=== PATIENT | female | born 1980 | race Caucasian/White ===

== ENCOUNTER 2020-08-21 17:38 | Outpatient (CLI) | payer BC, SELFPAY ==
--- NOTE | ~2020-08-21 | MM_ITS ---
EXAMINATION: MM screening [facility] BI w tyrel HISTORY: Screening mammogram TECHNIQUE: Craniocaudal and mediolateral oblique 3-D tomosynthesis images were obtained and synthetic 2-D images were generated. CAD analysis was submitted and interpreted. COMPARISON: 08/29/2019 bilateral Limited breast ultrasound examination 03/17/2019 bilateral diagnostic digital mammogram and Limited bilateral breast ultrasound examination 02/22/2019 bilateral digital screening mammogram BREAST PARENCHYMAL COMPOSITION: The breasts are heterogeneously dense, which may obscure small masses . FINDINGS: A circumscribed approximately 1 cm low-density opacity is noted in the inner mid left breas t, likely corresponding to previously reported stable 11 mm hypoechoic lesion at left breast 10:00 po sition 3 to 4 cm from nipple on 08/29/2019. The low-density and circumscribed margins and stable or sl ightly diminished size since 08/29/2019 are most consistent with benign process. There is suggestion of a possible adjacent 7 mm mass. Diagnostic left mammogram and left breast ultra sound examination are recommended. Architectural distortion is suggested at mid depth in the upper inner left breast (MLO Tomosynthesis image 39/58). Diagnostic left mammogram and left breast ultrasound examination are recommended. IMPRESSION: 1. Architectural distortion and possible 7 mm mass of left breast 2. Diagnostic left mammogram and left breast ultrasound examination are recommended. BI-RADS Category 0: Incomplete: Needs additional imaging evaluation. Reviewed, dictated and finalized at location A. CTOR COMMUNICATIONS IMPRESSION: 1. Architectural distortion and possible 7 mm mass of left breast 2. Diagnostic left mammogram and left breast ultrasound examination are recomme nded. BI-RADS Category 0: Incomplete: Needs additional imaging evaluation.
== END 2020-08-21 17:39 | disposition home or self-care (01) ==
LOC: ANHIMG 17:40
PROVIDERS: Visit Provider Nurse Practitioner
DX: Z12.31 Encounter for screening mammogram for malignant neoplasm of breast (principal); R92.8 Other abnormal and inconclusive findings on diagnostic imaging of breast
CPT/HCPCS: 77063; 77067

== ENCOUNTER → 2020-09-17 14:35 | Outpatient (CLI) | payer BC, SELFPAY ==
--- NOTE | ~2020-09-17 | MMUS_ITS ---
EXAMINATION: MM diagnostic mammo unilat LT, US breast LT complete HISTORY: Architectural distortion suggested at mid depth in the upper inner left breast on 08/17/2020 screening mammogram. Suggestion of possible new 7 mm mass. TECHNIQUE: Additional 3-D tomosynthesis images of the left breast were performed and synthetic 2-D im ages were generated. CAD analysis was submitted and interpreted. High resolution complete left breast ultrasound was performed. COMPARISON: 08/17/2020 bilateral digital screening mammogram FINDINGS: MAMMOGRAPHIC FINDINGS: There is heterogeneously dense stroma which may obscure small masses. ULTRASOUND: 3:00 5 cm from nipple: Parallel circumscribed hypoechoic 2.4 x 3.7 x 4.4 mm lesion without suspicious shadowing 4:00 4 cm from nipple: Parallel circumscribed 2.3 x 4.6 x 6 mm hypoechoic lesion without suspicious s hadowing 9:00 5 cm from nipple: Parallel circumscribed hypoechoic solid lesion measuring 5.4 x 9.4 x 8.4 mm. N o internal vascularity is noted on color flow imaging. There is some through-transmission. 9:00 3 cm from nipple: Parallel circumscribed hypoechoic approximately 3 x 5.8 mm probable septated c yst. 10:00 34 cm from nipple: Parallel circumscribed hypoechoic 4.9 x 9.2 x 1.0 mm lesion without internal vascularity, with through transmission and posterior enhancement. 9:00 subareolar area: 2.2 x 3.5 x 3.6 mm cyst; a couple of additional approximately 2 mm cysts are no raghav in the 9:00 subareolar area. IMPRESSION: 1. Benign sonographic lesions including cysts and benign-appearing solid lesions suggestive of fibroa denoma rather benign process. 2. Routine mammographic screening is recommended. BI-RADS Category 2: Benign finding(s). Reviewed, dictated and finalized at location A. MITE WELDER IMPRESSION: 1. Benign sonographic lesions including cysts and benign-appearing solid lesion s suggestive of fibroadenoma rather benign process. 2. Routine mammographic screening is recommended. BI-RADS Category 2: Benign finding(s).
== END ==
PROVIDERS: PCP Family Medicine; Visit Provider Obstetrics & Gynecology Gynecology
DX: R92.8 Other abnormal and inconclusive findings on diagnostic imaging of breast (principal)
CPT/HCPCS: 76641; 77065

== ENCOUNTER → 2022-11-25 13:51 | Outpatient (CLI) | payer BC, SELFPAY ==
--- NOTE | ~2022-11-25 | US_ITS ---
EXAMINATION: US transvaginal DATE: 11/25/2022 14:15 INDICATION: Abnormal uterine bleeding Comparison:Ultrasound dated 01/19/2019 TECHNIQUE: Multiple transabdominal and endovaginal sonographic images of the pelvis performed. FINDINGS: The uterus measures 7.7 x 5.1 x 5.4 cm. The endometrial complex measures 7 mm. The right ovary measures 3.1 x 1.9 x 1.9 cm and the left ovary measures 3 x 2.5 x 2.8 cm. There is a left ovarian cyst measuring 2.3 cm. There are small follicles in each ovary. Normal doppler signal in both ovaries. There is trace free fluid in the pelvis. There are no abnormal masses seen on either side. IMPRESSION: 1. Left ovarian cyst measuring 2.3 cm. Reviewed, dictated and finalized at location L. HOMETRICIAN
== END ==
PROVIDERS: PCP Family Medicine; Visit Provider Obstetrics & Gynecology Gynecology
DX: N93.8 Other specified abnormal uterine and vaginal bleeding (principal); N83.202 Unspecified ovarian cyst, left side
CPT/HCPCS: 76830

== ENCOUNTER → 2023-01-30 14:00 | Outpatient (CLI) | payer BC, SELFPAY ==
--- NOTE | ~2023-01-30 | MM_ITS ---
EXAMINATION: MM screening [facility] BI w tyrel HISTORY: Screening mammogram TECHNIQUE: Craniocaudal and mediolateral oblique 3-D tomosynthesis images were obtained and synthetic 2-D images were generated. CAD analysis was submitted and interpreted. COMPARISON: 09/17/2020, 08/21/2020, 02/28/2019, 02/22/2019 BREAST PARENCHYMAL COMPOSITION: The breasts are heterogeneously dense, which may obscure small masses . FINDINGS: No suspicious mass, calcification, or architectural distortion are identified in either martina ast to suggest malignancy. There has been no suspicious interval change. IMPRESSION: 1. No mammographic evidence of malignancy. 2. Recommend routine screening mammography in one year. BI-RADS Category 1: Negative Reviewed, dictated and finalized at location A.
== END ==
PROVIDERS: PCP Family Medicine; Visit Provider Nurse Practitioner
DX: Z12.31 Encounter for screening mammogram for malignant neoplasm of breast (principal)
CPT/HCPCS: 77063; 77067

== ENCOUNTER 2024-06-02 13:47 | Outpatient (CLI) | payer BC, SELFPAY ==
--- NOTE | ~2024-06-02 | MM_ITS ---
EXAMINATION: MM screening [facility] BI w tyrel HISTORY: Screening TECHNIQUE: Craniocaudal and mediolateral oblique 3-D tomosynthesis images were obtained and synthetic 2-D images were generated. CAD analysis was submitted and interpreted. COMPARISON: Comparison to multiple prior studies sequentially, with oldest reviewed study dated 02/22. BREAST PARENCHYMAL COMPOSITION: Dense: The breasts are heterogeneously dense, which may obscure small masses FINDINGS: The right breast is stable without evidence for malignancy. There are developing left breas t asymmetries obscured by dense fibroglandular content. IMPRESSION: 1. Developing left breast asymmetries. 2. Additional mammographic views and possible breast ultrasound are recommended. BI-RADS Category 0: Incomplete: Needs additional imaging evaluation. Reviewed, dictated and finalized at location B. IMPRESSION: 1. Developing left breast asymmetries. 2. Additional mammographic views and possible breast ultrasound are recommended . BI-RADS Category 0: Incomplete: Needs additional imaging evaluation.
== END 2024-06-02 13:48 | disposition home or self-care (01) ==
LOC: MICIMG 13:48
PROVIDERS: PCP Nurse Practitioner; Visit Provider Nurse Practitioner
DX: Z12.31 Encounter for screening mammogram for malignant neoplasm of breast (principal); N64.89 Other specified disorders of breast
CPT/HCPCS: 77063; 77067

== ENCOUNTER 2024-06-28 08:19 | Outpatient (CLI) | payer BC, SELFPAY ==
--- NOTE | ~2024-06-28 | MMUS_ITS ---
EXAMINATION: MM diagnostic [facility] LT w tyrel, US breast LT complete HISTORY: Follow-up left breast asymmetries TECHNIQUE: Additional 3-D tomosynthesis images of the left breast were performed and synthetic 2-D im ages were generated. CAD analysis was submitted and interpreted. High resolution complete left breast ultrasound was performed. COMPARISON: Comparison to multiple prior studies sequentially, with oldest reviewed study dated 02/22. BREAST PARENCHYMAL COMPOSITION: Dense: The breasts are heterogeneously dense, which may obscure small masses FINDINGS: MAMMOGRAPHIC FINDINGS: There is a mass in the lateral aspect of the left breast which is obscured by dense fibroglandular ti ssue. There are no suspicious calcifications or architectural distortion. ULTRASOUND: Complete US of all 4 quadrants of the left breast/s and retroareolar region was reviewed. At 1:00, 5 cm from the nipple there is a 1.3 cm cyst. At 3:00, 5 cm from the nipple there is a 7 mm cyst. At 8:0 0, 1 cm from the nipple there is a 5 mm cyst. At 9:00, 5 cm from the nipple there is an oval hypoecho ic circumscribed parallel oriented 7 x 4 x 7 mm mass without posterior features or internal vasculari ty, decreased in size compared with prior examination, likely benign. At 10:00, 4 cm from the nipple there is an oval hypoechoic mass with circumscribed margins measuring 9 x 9 x 5 mm with internal calc ifications, no internal vascularity and no posterior features, stable compared with prior ultrasound dated 09/17/2020, benign. IMPRESSION: 1. No evidence for malignancy in the left breast. Benign findings. 2. Routine yearly screening mammogram and regular clinical breast examination are recommended. BI-RADS Category 2: Benign finding(s). Reviewed, dictated and finalized at location B. IMPRESSION: 1. No evidence for malignancy in the left breast. Benign findings. 2. Routine yearly screening mammogram and regular clinical breast examination a re recommended. BI-RADS Category 2: Benign finding(s).
== END 2024-06-28 08:20 | disposition home or self-care (01) ==
PROVIDERS: PCP Obstetrics & Gynecology Gynecology; Visit Provider Obstetrics & Gynecology Gynecology
DX: R92.8 Other abnormal and inconclusive findings on diagnostic imaging of breast (principal)
CPT/HCPCS: 76641; 77061; 77065; G0279

== ENCOUNTER 2025-06-10 13:39 | Outpatient (CLI) | payer BC, SELFPAY ==
--- OUTSIDE RECORDS SUMMARY | 2025-06-10 13:44 | XMS_ITS | Encounter Summary ---
Author Organization [facility] Address [facility] [place] [address] Care Team Providers Care Cream Dipper Name Role Phone Sherlyn Brown DO Primary Care Provider Encounter Details Date Type Department Care Team (Late st Contact Info) Description 05/05/2024 [employer] Message Enc [facility] Medical Group Family Medicine - [place] [address], [address] [place] [id number] Sherlyn Brown DO [address] [place], [place] [phone] Insurance issue with labs requested Social History Tobacco Use Types Packs/Day Years Used Date Smoking Tobacco: Former Cigarettes 1 15 0 04/28/1996 - 04/28/2011 Passive Smoke Exposure: Never Smokeless Tobacco: Never Alcohol Use Standard Drinks/Week Comments Yes 3.3 (1 standard drink = 0.6 oz p ure alcohol) socially PHQ-2 Answer Date Recorded Patient Health Questionnaire-2 Score 0 12/15/2023 Comments No Sex and Gender Information Value Date Recorded Sex Assigned at Female 04/12/2025 2:02 PM CDT Legal Sex Female 6:23 PM CDT Gender Identity Not on file Sexual Orientation Not on file documented as of this encounter Plan of Treatment Not on file documented as of this encounter Visit Diagnoses Not on filedocumented in this encounter Additional Health Concerns Assessment Noted Time PHQ-9 Depression Total Score: 0 12/15/19 24 10:14 AM CDT documented as of this encounter Care Teams Cream Dipper Relationship Specialty Start Date End Date Sherlyn Brown DO [address] [place] [address] PCP - General FAMILY PRACTICE 09/12/22 documented as of this encounter
--- OUTSIDE RECORDS SUMMARY | 2025-06-10 13:44 | XMS_ITS | Encounter Summary ---
Author Organization [facility] Address [facility] [place] [address] Care Team Providers Care Maintenance Mechanic Millwright Name Role Phone Sherlyn Brown DO Primary Care Provider [phone] Encounter Details Date Type Department Care Team (Late st Contact Info) Description 09/29/2023 [employer] Message Enc [facility] Medical Group Family Medicine - [place] 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
--- OUTSIDE RECORDS SUMMARY | 2025-06-10 13:44 | XMS_ITS | Encounter Summary ---
Author Organization [facility] Address [address] [place] [address] Care Team Providers Care Scientific Editor Name Role Phone Sherlyn Brown Primary Care Provider [phone] Encounter Details Date Type Department Care Team (Late st Contact Info) Description 03/20/2023 [employer] Message Enc [facility] Medical Group Family Medicine - [place] [id number], [address] [place] [phone] [employer]herbie, [facility] Provider methylphenidate Social History Tobacco Use Types Packs/Day Years [...] on file Sexual Orientation Not on file COVID-19 Exposure Response Date Recorded In the last 10 days, have yo u been in contact with someone who was confirmed or suspected to have Coronavirus/COVID-19? 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
--- OUTSIDE RECORDS SUMMARY | 2025-06-10 13:44 | XMS_ITS | Encounter Summary ---
Author Organization [facility] Address [facility] [place] [address] Care Team Providers Care Loss Prevention Specialist Name Role Phone Sherlyn Brown DO Primary Care Provider [phone] Encounter Details Date Type Department Care Team (Late st Contact Info) Description 12/17/2023 [employer] Message Enc [facility] Medical Group Family Medicine - [place] [address] [facility], [address] [place] [phone] Sherlyn Brown DO [address] [place], [place] [phone] Need labs sent to [facility] Social History Tobacco Use Types Packs/Day Years [...] documented as of this encounter Care Teams Loss Prevention Specialist Relationship Specialty Start Date End Date Sherlyn Brown DO [address] [place] [address] PCP - General FAMILY PRACTICE 09/12/22 documented as of this encounter
--- OUTSIDE RECORDS SUMMARY | 2025-06-10 13:44 | XMS_ITS | Clinical Summary ---
Author Organization [facility] Address [address] [place] [address] Care Team Providers Care Steam And Power Superintendent Name Role Phone Marcus Porter MD Primary Care Provider [phone] Jarrett Alcantar DO Unavailable [phone] Halina Ren MD Unavailable [phone] Allergies No known active allergies Medications No known medications Active Problems Problem Noted Date Diagnosed Date Protein C deficiency 04/03/2019 MTHFR gene mutation 04/03/2019 Anxiety 06/21/2018 Vitamin D deficiency, unspecified 02/17/2017 Hypercoagulable state 07/09/2016 Encounters Date Type Department Care Team Description 05/04/2025 Telephone [facility] Oncology [address] [place] [phone] Michelle Faustin 05/03/2025 4:30 PM CDT Telemedicine [facility] Medicine [facility] Oncology [address] [place] [address] [address] [place] [address] Jarrett Alcantar DO Protein C deficiency (Primary Dx) 04/27/2025 8:00 AM CDT Lab [facility] at [address] [address] Protein C deficiency (Primary Dx) from Last 3 Months Immunizations Immunization Administration Dates Next Due Influenza, Quadrivalent, Spl it, Preservative Free, Intramuscular 07/25/2019 Influenza, Unspecified 06/28/2020,07/03/2015,05/2015 Pfizer SARS-CoV-2 Monovalent Vaccination (12+ Yrs) PURPLE 12/22/2020,12/01/2020 Surgical History Surgery Date Site/Laterality Comments SECTION WISDOM TOOTH EXTRACTION DILATION AND CURETTAGE OF UTERUS x2 HYSTEROSCOPY ABLATION uterine LASIK Medical History Medical History Date Comments Anxiety Protein C deficiency MTHFR (methylene THF reductase) deficiency and h omocystinuria History of multiple spontaneous abortions Mitral valve prolapse Family History Medical History Relation Name Comments Heart disease Mother Kidney failure Mother Stroke Mother Relation Name Status Comments Father Alive Mother Social History Tobacco Use Types Packs/Day Years Used Date Smoking Tobacco: Former Cigarettes 2 15 0 04/09/1996 - 04/09/2011 Smokeless Tobacco: Never Alcohol Use Standard Drinks/Week Comments Yes 0 (1 standard drink = 0.6 oz pur e alcohol) AUDIT-C Answer Date Recorded Frequency of Alcohol Consumption 2-3 times a wee k 04/03/2019 Average Number of Drinks Not on file 019 Frequency of Binge Drinking Not on file 03/2019 PHQ-2 Answer Date Recorded PHQ-2 Total Score (If total score is 3 or more points, staff should administer the PHQ-9) 0 11/29/2020 Comments Unknown Sex and Gender Information Value Date Recorded Sex Assigned at Not on file Legal Sex Female 8:18 AM CDT Gender Identity Not on file Sexual Orientation Not on file 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 Not on file Not on file Obstetrics History Last Filed Vital Signs Vital Sign Reading Time Taken Comments Blood Pressure 115/80 04/18/2022 8:11 AM CDT Pulse 67 04/18/2022 8:11 AM CDT Temperature 36.6 C (97.9 F) 04/18/2022 8:11 AM CDT Respiratory Rate 18 04/18/2022 8:11 AM CDT Oxygen Saturation 98% 04/18/2022 8:11 AM CDT Inhaled Oxygen Concentration - - Weight 77.7 kg (171 lb 3.2 oz) 04/18/2022 8:11 A M CDT Height 156.2 cm (5' 1.5) 04/18/2022 8:11 AM CDT Body Mass Index 31.82 04/18/2022 8:11 AM CDT Plan of Treatment Health Maintenance Due Date Last Done Comments Breast Cancer Screening-Mammogram 1978 Cervical Cancer Screening 1978 Colon Cancer Screening-Colonoscopy 1978 Hepatitis C Screening 1978 DTaP/Tdap/Td Vaccine (1 - Tdap) 1989 Hepatitis B Screening 1996 Depression Screening 11/29/2021 11/29/2020, 07/25/2019, 01/24/2019 Regular Well Visit/Exam 18-64 11/29/2021 11/29/2020 Covid-19 Vaccine ( season) 2025 12/22/2020, 12/01/2020 Influenza Vaccine (#1) 2025 , 06/28/2020, 07/25/2019, Additional history exists HPV Vaccines Aged Out No longer eligi ble based on patient's age to complete this topic Pneumococcal vaccine <65 Aged Out No longer eligible based on patient's age to complete this topic Procedures Procedure Name Priority Date/Time Associated Diagnosis Comments PROTEIN C ACTIVITY Routine 04/27/2025 8: 12 AM CDT Protein C deficiency from Last 3 Months Results * (ABNORMAL) Protein C activity (04/27/2025 8:12 AM CDT) Protein C 57(L) 60 - 150 % Comment:Testing performed by : [facility], [address] [facility], [place]., [address] Blood 04/27/2025 8:12 AM CDT 04/27/2025 5:36 PM CDT us Jarrett Alcantar DO LAB BLOOD ORDERABLES Final R esult [facility] [address] [facility] Department [place] [address] from Last 3 Months Insurance [facility] Care Teams Steam And Power Superintendent Relationship Specialty Start Date End Date Marcus Porter MD PCP - General Family Medicine 01/19/19 Jarrett Alcantar DO [address] [place] [address] Medical Oncologist/Teacher Education Instructor Hematology and Oncology 03/16/19 Halina Ren MD [address] [facility] [address] [place], [place] [id number] Referring Physician Gynecology 03/28/19
--- OUTSIDE RECORDS SUMMARY | 2025-06-10 13:44 | XMS_ITS | Clinical Summary ---
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 Gender Identity Not on file Sexual Orientation Not on file Plan of Treatment Health Maintenance Due Date Last Done Comments DTAP/TDAP/TD VACCINES (1 - Tdap) 1997 HEPATITIS B VACCINES (1 of 3 - 19+ 3-dose series) 1997 HPV/Cotest (21-29) 12/01/1999 CERVICAL CANCER SCREENING 2008 HPV/Cotest (30-65) 2008 PAP SMEAR 2008 BREAST CANCER SCREENING 2018 COLORECTAL SCREENING 12/01/2023 Colorectal Cancer Screening 12/01/2023 FIT-DNA Q 3 years 12/01/2023 FIT/FOBT Q 1 year 12/01/2023 Flex Sig/CT Colonography Q 5 years 12/01/2023 INFLUENZA VACCINE (#1) 2025 HPV VACCINES Aged Out No longer eligi ble based on patient's age to complete this topic Insurance BCBS BLUE ACCESS/[facility]
--- OUTSIDE RECORDS SUMMARY | 2025-06-10 13:44 | XMS_ITS | Encounter Summary ---
Author Organization [facility] Address [facility] [place] [address] Care Team Providers Care Bird Cage Assembler Name Role Phone Sherlyn Brown DO Primary Care Provider [phone] Encounter Details Date Type Department Care Team (Late st Contact Info) Description 06/23/2024 Identia Message Enc [facility] Family Medicine - [place] [address], [address] [place] [phone] Sherlyn Brown DO [address] [place], [place] [phone] pap smear Social History Tobacco Use Types Packs/Day Years [...] documented as of this encounter Care Teams Bird Cage Assembler Relationship Specialty Start Date End Date Sherlyn Brown DO [address] [place] [address] PCP - General FAMILY PRACTICE 09/12/22 documented as of this encounter
--- OUTSIDE RECORDS SUMMARY | 2025-06-10 13:44 | XMS_ITS | Encounter Summary ---
Author Organization [facility] Care Team Providers Care Audit Spec Name Role Phone Marcus Porter MD Primary Care Provider [phone] Jarrett Alcantar DO Unavailable [phone] Halina Ren MD Unavailable [phone] Encounter Details Date Type Department Care Team (Latest Contact Info) Description 10/18/2016 Orders Only [facility] CLINCONV Provider, MD Sam [address] [place] [address] Social History Tobacco Use Types Packs/Day Years Used Date Smoking Tobacco: Never Assessed Comments Unknown Sex and Gender Information Value Date Recorded Sex Assigned at Not on file Legal Sex Female 8:18 AM CDT Gender Identity Not on file Sexual Orientation Not on file documented as of this encounter Plan of Treatment Not on file documented as of this encounter Procedures Procedure Name Priority Date/Time Associated Diagnosis Comments SCAN - LABS 10/27/2016 12:00 AM COMPLAINT ANALYST documented in this encounter Results * SCAN - LABS (10/27/2016 12:00 AM COMPLAINT ANALYST) Narrative 10/27/2016 12:00 AM COMPLAINT ANALYST Ordered by an unspecified provider. Historical Provider Final Res ult documented in this encounter Visit Diagnoses Not on filedocumented in this encounter Additional Health Concerns Infection Onset Date Last Indicated Resolved Time COVID: Suspected 08/26/2021 08/26/2021 08/26/2021 9:07 PM COMPLAINT ANALYST COVID19 08/26/2021 08/26/2021 09/09/2021 3:06 AM COMPLAINT ANALYST documented as of this encounter Care Teams Audit Spec Relationship Specialty Start Date End Date Marcus Porter MD PCP - General Family Medicine 01/19/19 Jarrett Alcantar DO [address] [place] [address] Medical Oncologist/Program Planner Hematology and Oncology 03/16/19 Halina Ren MD [address] [facility] [address] [place] [address] Referring Physician Gynecology 03/28/19 documented as of this encounter
--- OUTSIDE RECORDS SUMMARY | 2025-06-10 13:44 | XMS_ITS | Encounter Summary ---
Author Organization [facility] Address [facility] [place] [address] Care Team Providers Care Lawn Specialist Name Role Phone Sherlyn Brown DO Primary Care Provider [phone] Encounter Details Date Type Department Care Team (Late st Contact Info) Description 02/18/2023 [employer] Message Enc [facility] Family Medicine - [place] [address], [address] [place] [phone] Sherlyn Brown DO [address] [place], [place] [phone] Problems with heart monitor device Social History Tobacco Use Types Packs/Day Years [...] suspected to have Coronavirus/COVID-19? No / Unsure 02/10/2023 1:59 PM CDT documented as of this encounter Plan of Treatment Not on file documented as of this encounter Visit Diagnoses Not on filedocumented in this encounter Additional Health Concerns Assessment Noted Time PHQ-9 Depression Total Score: 0 10/03/19 23 11:40 AM GANG HEAD SAW OPERATOR documented as of this encounter Care Teams Lawn Specialist Relationship Specialty Start Date End Date Sherlyn Brown DO [address] [place], [place] [phone] PCP - General FAMILY PRACTICE 09/12/22 documented as of this encounter
--- OUTSIDE RECORDS SUMMARY | 2025-06-10 13:44 | XMS_ITS | Clinical Summary ---
Author Organization [facility] Address [facility] [place] [address] Care Team Providers Care Staff Assistant Name Role Phone Sherlyn Brown DO Primary Care Provider [phone] Allergies Active Allergy Reactions Criticality Noted Date Comments Atomoxetine Blurred vision 11/01/2022 Medications vitamin D3, cholecalciferol , 5000 UNITS capsule Take 4,000 Int'l Units by mouth. Active fluticasone propionate (FLONASE) 50 MCG/ACT nasal spray 2 sprays by Each Nostril route. Active amphetamine-dex troamphetamine (ADDERALL) 15 MG tablet 4 Active MAGNESIUM OR Active atorvastatin (LIPITOR) 10 MG tabletIndicatio ns:Elevated lipids Take 1 tablet (10 mg total) by mouth nightly at bedtime. 90 tablet 5 Active nirmatrelvir & ritonavir 300/100 (PAXLOVID, 300/100,) 20 x 150 MG & 10 x 100MG tablet packIndications :COVID-19 Take TWO nirmatrelvir 150 mg tablet(s) along with ONE ritonavir 100 mg tablet, with all three tablets taken together, twice daily for 5 days. May take with or without food. Swallow tablets whole. Do not chew, break or crush.. 30 each 5 Active triamcinolone (KENALOG) 0.1 % creamIndication s:COVID-19 Apply to neck bid for 7 days avoid sun 45 g 5 Active Active Problems Problem Noted Date Diagnosed Date Attention deficit hyperactiv ity disorder (ADHD), combined type 10/04/2022 Obesity (BMI 30-39.9) 10/04/2022 Mitral valve prolapse 09/12/2022 MTHFR gene mutation 04/03/2019 Protein C deficiency (HHS/HCC) 04/03/2019 Anxiety 06/21/2018 Vitamin D deficiency, unspecified 02/17/2017 Resolved Problems Problem Noted Date Diagnosed Date Resolved Date Hypercoagulable state (HHS/HCC) 07/09/2016 06/25/2023 Encounters Date Type Department Care Team Description 04/12/2025 2:00 PM CDT Office Visit [facility] Family Medicine - [place] [address], [address] [place] [address] Stephanie, Sherlyn, DO Sore Throat (Pt c/o nausea, cough, CHENG and sore throat. tested positive for COVID. - [facility]) 04/12/2025 Travel from Last 3 Months Immunizations Immunization Administration Dates Next Due Fluzone 6 Months+ Quad (0.5 mL Prefilled Syringe) 06/25/2023 Influenza (Generic) 06/28/2020,07/03/2015,2014 Influenza Adult (Generic) 07/25/2019 PFIZER COVID-19 (OLSON CAP), MRNA, LNP-S, PF, 30 MCG/0.3 ML ARACEIL-SUCROSE, IM 04/04/2022 PFIZER COVID-19 (ORIGINAL FO RMULATION, PURPLE CAP) mRNA, LNP-S, PF, 30 MCG/0.3 ML DOSE 12/22/2020,12/01/2020 Family History Medical History Relation Comments Cancer Father Prostate Cancer Maternal Grandmother Uterine Depression Maternal Grandmother Miscarriages / Stillbirths Maternal Grandmother RPL Depression Mother Kidney Disease Mother End stage renal failure from treatment for fluke viral infection Colon Cancer Neg Hx Relation Status Comments Father Alive Maternal Grandmother Mother Social History Tobacco Use Types Packs/Day Years Used Date Smoking Tobacco: Former Cigarettes 1 15 0 04/28/1996 - 04/28/2011 Passive Smoke Exposure: Past Smokeless Tobacco: Never Tobacco Cessation:Counseling Given: No Alcohol Use Standard Drinks/Week Comments Yes 3.3 (1 standard drink = 0.6 oz p ure alcohol) socially PHQ-2 Answer Date Recorded Patient Health Questionnaire-2 Score 0 10/11/2024 Comments No Sex and Gender Information Value Date Recorded Sex Assigned at Female 04/12/2025 2:02 PM CDT Legal Sex Female 6:23 PM CDT Gender Identity Not on file Sexual Orientation Not on file Last Filed Vital Signs Vital Sign Reading Time Taken Comments Blood Pressure 118/68 04/12/2025 2:02 PM CDT Pulse 99 04/12/2025 2:02 PM CDT Temperature 36.8 C (98.3 F) 04/12/2025 2:02 PM CDT Respiratory Rate 14 10/11/2024 7:43 AM RIVET CATCHER Oxygen Saturation 97% 04/12/2025 2:02 PM CDT Inhaled Oxygen Concentration - - Weight 64.4 kg (142 lb) 04/12/2025 2:02 PM CDT Height 154.9 cm (5' 1) 10/11/2024 7:43 AM RIVET CATCHER Body Mass Index 26.83 10/11/2024 7:43 AM RIVET CATCHER Plan of Treatment Health Maintenance Due Date Last Done Comments Meningococcal Vaccine (1 - Risk 2-dose series) 1980 Meningococcal B Vaccine (1 o f 5 - Increased Risk) 1988 Hepatitis C 1996 DTaP, Tdap and Td Vaccines ( 1 - Tdap) 1997 Hepatitis B Vaccines (1 of 3 - 19+ 3-dose series) 1997 Pneumococcal Vaccine: Pediatrics (0 to 5 Years) and At-Risk Patients (6 to 49 Years) (1 of 2 - PCV) 1997 Cervical Cancer Screening Pa p with HPV Testing (Age 30 to 64) Every 5 Years 2008 Mammogram Screening 01/30/2025 01/30/2023 COVID-19 Vaccine (2024-2 6 season) 2025 04/04/2022, 12/22/2020, 12/01/2020 Annual Physical 10/11/2025 10/11/2024, 12/15/2023 Cervical Cancer Screening Pa p Smear (Age 30 to 64) Every 3 Years 10/12/2026 10/12/2023 Cervical Cancer Screening wi th HPV 10/12/2026 Colorectal Cancer Screening FIT-DNA (3 Years) 10/22/2027 10/22/2024, 10/22/2024 PHQ-2 (Physician [place]) Completed 10/11/2024 RSV Immunizations Under 20 Months Aged Out No longer eligible b ased on patient's age to complete this topic Procedures Procedure Name Priority Date/Time Associated Diagnosis Comments COLOGUARD (EXACT SCIENCE) Routine 10/22/2024 10:40 AM RIVET CATCHER Screening for colon cancer OUTSIDE CYTOPATH CERV/VAG INTERPRET (PAP) (SCAN ORDER) 10/12/2023 MAMMOGRAM GENERIC (SCAN ORDER) 01/30/2023 from Last 3 Months or Most Recently Relevant to Health Maintenance Results * COLOGUARD (EXACT SCIENCE) (10/22/2024 10:40 AM RIVET CATCHER) COLOGUARD RESULT Negative Negative [facility] (CLIA #:[id number]) Comment: NEGATIVE TEST RESULT. A negative Cologuard result indicates a low likelihood that a colorectal cancer (CRC) or advanced adenoma (adenomatous polyps with more advanced pre-malignant features) is present. The chance that a person with a negative Cologuard test has a colorectal cancer is less than 1 in 1500 (negative predictive value >99.9%) or has an advanced adenoma is less than 5.3% (negative predictive value 94.7%). These data are based on a prospective cross-sectional study of 10,000 individuals at average risk for colorectal cancer who were screened with both Cologuard and colonoscopy. (Geovany Ca et al, N Engl J Med 2014;370(14):2038-3029) The normal value (reference range) for this assay is negative. COLOGUARD RE-SCREENING RECOMMENDATION: Periodic colorectal cancer screening is an important part of preventive healthcare for asymptomatic individuals at average risk for colorectal cancer. Following a negative Cologuard result, the French Cancer Society and U.S. Multi-Society Task Force screening guidelines recommend a Cologuard re-screening interval of 3 years. References: French Cancer Society Guideline for Colorectal Cancer Screening: https://www.cancer.org/cancer/iagyc-fsqhzr-npohlf/thpfqijpz-mrgzofwly-joglorp/ac s-rec ommendations.html.; Dusty DK, [place] CR, Lina GANDHI, Colorectal Cancer Screening: Recommendations for Physicians and Patients from the U.S. Multi-Society Task Force on Colorectal Cancer Screening , Am J Gastroenterology 2017; 112:1745-5497. TEST DESCRIPTION: Composite algorithmic analysis of stool DNA-biomarkers with hemoglobin immunoassay. Quantitative values of individual biomarkers are not reportable and are not associated with individual biomarker result reference ranges. Cologuard is intended for colorectal cancer screening of adults of either sex, 45 years or older, who are at average-risk for colorectal cancer (CRC). Cologuard has been approved for use by the U.S. FDA. The performance of Cologuard was established in a cross sectional study of average-risk adults aged 50-84. Cologuard performance in patients ages 45 to 49 years was estimated by sub-group analysis of near-age groups. Colonoscopies performed for a positive result may find as the most clinically significant lesion: colorectal cancer [4.0%], advanced adenoma (including sessile serrated polyps greater than or equal to 1cm diameter) [20%] or non- advanced adenoma [31%]; or no colorectal neoplasia [45%]. These estimates are derived from a prospective cross-sectional screening study of 10,000 individuals at average risk for colorectal cancer who were screened with both Cologuard and colonoscopy. (Geovany Barroso. et al, N Engl J Med 2014;370(14):0570-4696.) Cologuard may produce a false negative or false positive result (no colorectal cancer or precancerous polyp present at colonoscopy follow up). A negative Cologuard test result does not guarantee the absence of CRC or advanced adenoma (pre-cancer). The current Cologuard screening interval is every 3 years. (French Cancer Society and U.S. Multi-Society Task Force). Cologuard performance data in a 10,000 patient pivotal study using colonoscopy as the reference method can be accessed at the following location: www.[employer].com/results. Additional description of the Cologuard test process, warnings and precautions can be found at www.cologuard.com. STOOL STOOL SPECIMEN / Unknown 10/22/2024 10:40 AM RIVET CATCHER 10/23/2024 6:41 PM RIVET CATCHER us Sherlyn Stephanie DO BODY FLUIDS AND STOOLS ORDERABL ES Final Result [facility] [address] [place] [address], [place] (CLIA #:[id number]) [address] [place] [address] * PAP SMEAR (SCAN ORDER) (10/12/2023) 10/12/2023 us [facility] Scanned SCANNING Final Resu lt * MAMMOGRAM GENERIC (01/30/2023) Anatomical Region Laterality Modality Other 01/30/2023 us [facility] Scanned SCANNING Final Resu lt from Last 3 Months or Most Recently Relevant to Health Maintenance [place] [address] Care Teams Staff Assistant Relationship Specialty Start Date End Date Sherlyn Brown DO [address] [place] [address] PCP - General FAMILY PRACTICE 09/12/22
--- OUTSIDE RECORDS SUMMARY | 2025-06-10 13:44 | XMS_ITS | Clinical Summary ---
Author Organization [facility] Address [address] [place] [address] Care Team Providers Care Tube Room Cashier Name Role Phone Sherlyn Brown DO Primary Care Provider [phone] Source Comments [facility] Affiliates and Associated Physician Practices is amultiple site organization consisting of ambulatory clinics and hospital sitesin [place], [place], [place] and [place]. This disclosure is being madepursuant to the Care Everywhere program and may not contain all information available regarding this patient. Last updated 18.[facility] Social History Tobacco Use Types Packs/Day Years Used Date Smoking Tobacco: Former Cigarettes Smokeless Tobacco: Never Tobacco Cessation:Counseling Given: Not Answered Comments Unknown Sex and Gender Information Value Date Recorded Sex Assigned at Not on file Legal Sex Female 7:32 AM CDT Gender Identity Not on file Sexual Orientation Not on file Plan of Treatment Health Maintenance Due Date Last Done Comments COLOGUARD (AGES 45-75) - COLON CA SCREENING 1978 COLON MONITORING 1978 COLONOSCOPY - COLON CA SCREENING 1978 CT COLONOGRAPHY - COLON CA SCREENING 1978 Colorectal Cancer Screening 1978 FIT - COLON CA SCREENING 1978 FLEX SIG - COLON CA SCREENING 1978 LIPID TESTING 1978 MAMMOGRAM 1978 HIV SCREENING 1993 HEPATITIS C SCREENING 11/25/1996 DTAP/TDAP/TD VACCINES (1 - Tdap) 1997 HEPATITIS B VACCINE (1 of 3 - 19+ 3-dose series) 1997 PAP SMEAR 12/01/1999 DEPRESSION SCREENING 09/28/2024 COVID-19 VACCINE ( season) 2025 04/04/2022, 12/22/2020, 12/01/2020 INFLUENZA VACCINE (#1) 2025 , 06/28/2020, 07/25/2019, Additional history exists ZOSTER VACCINE (1 of 2) 2028 HIB VACCINE Aged Out No longer eligi ble based on patient's age to complete this topic HPV VACCINE Aged Out No longer eligi ble based on patient's age to complete this topic MENINGOCOCCAL (Group B) VACCINE SHARED DECISION-MAKING Aged Out No longer eligible based on patient's age to complete this topic MENINGOCOCCAL GROUPS A/C/Y/W VACCINE Aged Out No longer eligible based on patient's age to complete this topic PNEUMOCOCCAL VACCINE Aged Out No long er eligible based on patient's age to complete this topic Insurance ANTHEM ANTHEM Care Teams Tube Room Cashier Relationship Specialty Start Date End Date Sherlyn Brown DO [address] [place] [address] PCP - General Family Medicine 07/07/23
--- OUTSIDE RECORDS SUMMARY | 2025-06-10 13:44 | XMS_ITS | Encounter Summary ---
Author Organization [facility] Address [facility] [place] [address] Care Team Providers Care Rectifying Attendant Name Role Phone Sherlyn Brown DO Primary Care Provider [phone] Encounter Details Date Type Department Care Team (Late st Contact Info) Description 12/10/2023 [employer] Message Enc [facility] Family Medicine - [place] [address], [address] [place] [phone] Sherlyn Brown DO [address] [place], [place] [phone] Refill request Social History Tobacco Use Types Packs/Day Years [...] Total Score: 0 10/03/19 23 11:40 AM PRODUCT DESIGN MANAGER documented as of this encounter Care Teams Rectifying Attendant Relationship Specialty Start Date End Date Sherlyn Brown DO [facility] [place], [place] [address] PCP - General FAMILY PRACTICE 09/12/22 documented as of this encounter
[2025-06-10 14:07] LABS: Hematocrit 40.0 % (37.0-47.0); Hemoglobin 13.3 g/dL (12.0-15.0); Mean Corpuscular HGB Conc 33.3 g/dl (32-36); Mean Corpuscular Hemoglobin 30.9 pg (26-34); Mean Corpuscular Volume 92.8 fl (80-100); Platelet Count Result 271 k/mm3 (150-375); Red Blood Count 4.31 M/mm3 (4.2-5.4); White Blood Count 5.9 K/mm3 (4.5-10.0)
[2025-06-10 14:28] LABS: INR 0.9; Prothrombin Time 12.8 Seconds (11.1-14.7)
[2025-06-10 14:29] LABS: Partial Thromboplastin Time 26.2 Seconds (22.3-36.8)
== END 2025-06-10 13:40 | disposition home or self-care (01) ==
LOC: ANHLAB 13:42
PROVIDERS: PCP Family Medicine; Visit Provider Anesthesiology
DX: Z01.818 Encounter for other preprocedural examination (principal); D68.59 Other primary thrombophilia
CPT/HCPCS: 36415; 85027; 85610; 85730

== ENCOUNTER 2025-06-12 01:14 | Day surgery (SDC) | payer BC, SELFPAY ==
--- OUTSIDE RECORDS SUMMARY | 2015-04-22 19:00 | XMS_ITS | Continuity of Care Document ---
Author Organization [facility] Address [address] [place] [address] Phone Care Team Providers Care Field Representatives Director Name Role Phone Unavailable Unavailable Unavailable Advance Directives Directive Yes / No Effective Date File Name No Information Encounters Encounter Description Practice Location Reason(s) For Visit Diagnoses Date Provider Providers Copied on Encounter [facility], [address] [facility], [place], [place], [id number], [place] tel:[phone] [facility] No Information No Information Referring Provider: ZACARIAS Pappas, [address], [place], [address]. tel:[phone] Family History Family Member Type Diagnosis Age At Onset No Information Payers Payer name Insurance type Covered alliance party ID Authorjla libia(s) [facility] PPO [id number] Social History Type Description Quantity Date Captured Comments Sex Female Smoking Status No Information Chief Complaint And Reason For Visit No Information History Of Present Illness Encounter Date Complaint History Of Prese nt Illness No Information Instructions Date Instruction Additional Infor mation No Information Assessments Type Assessment Date No Information
[2025-04-12 10:47] VITALS: BMI 27.1
--- NOTE | 2025-04-12 11:00 | PC.NURSE ---
Report to the Outpatient Waiting Room, entrance under the green pavilion located off [facility], at time _0600_ on date _[id number]_. Planned Procedure Time: _0730_.? Time changes happen often and if your time is changed the preop area will call you the afternoon before. - You and your visitor will be asked to self-screen and do not enter if you have any COVID symptoms. Please call surgeon if you need to reschedule. - A mask is optional within the hospital at this time. Patients may have clear liquids (water, carbonated beverages, clear teas, apple juice) until 3 hours prior to surgery with a maximum of 20 ounces. - No food from midnight until time of surgery and no smoking, or chewing tobacco (or any form of nicotine). No chewing gum, candy or mints. Take only the following medications with a SIP of water on the morning of surgery: ___None____ DO NOT STOP ANY OF YOUR OTHER PRESCRIPTION MEDICATIONS PRIOR TO SURGERY EXCEPT THE FOLLOWING Hold all vitamins and supplements for 3 days per anesthesiologist. Medications to discontinue per physician Date to take last dose Please no make-up, nail german, hairspray, perfume, deodorant, or body powder the day of surgery.? No jewelry (including any body piercings) or valuables the day of surgery, leave them at home.? Please take a shower or bath the night before, or the morning of, surgery with an antibacterial soap.? Wear comfortable, loose fitting clothing.? - Jewelry must be removed prior to entering the operating room.? Rings and piercings that are not removed may be cut off. - The hospital will not accept responsibility for valuables.? - Please leave all valuables, including medications, at home the day of surgery. If you are going home after surgery, a licensed truck driver salesperson must drive you home.? - NO public transportation without another adult if you receive anesthesia. - We recommend that an adult stay with you for 24 hours following discharge. - We also recommend that you do not drive, make important decision, drink alcoholic beverages, or take any drugs that were not prescribed by your health care provider for at least 24 hours after your discharge time. Follow any additional instructions given to you from your surgeon. Telephone instructions given to __Amber___and asked if any additional questions and then verbalized understanding. Patient advised to call surgeon office or pre surgery nurse liaison [phone] if any additional questions.
[2025-06-01 15:44] VITALS: BMI 26.6
--- NOTE | 2025-06-01 15:50 | SUR.PREOP ---
Report to the Outpatient Waiting Room, entrance under the green pavilion located off [facility], at time _0600_ on date 06/12/25. Planned Procedure Time: 0730.? Time changes happen often and if your time is changed the preop area will call you the afternoon before. - You and your visitor will be asked to self-screen and do not enter if you have any COVID symptoms. Please call surgeon if you need to reschedule. - A mask is optional within the hospital at this time. Patients may have clear liquids (water, carbonated beverages, clear teas, apple juice) until 3 hours prior to surgery with a maximum of 20 ounces. - No food from midnight until time of surgery and no smoking, or chewing tobacco (or any form of nicotine). No chewing gum, candy or mints. - Infants may have breast milk until 4 hours before surgery, formula 6 hours prior to surgery. - Children will be allowed to drink immediately following surgery.? If applicable, please bring a bottle or sippy cup to assist with drinking. Juice, water, soda, and popsicles are readily available.? For infants on formula, please bring formula the day of surgery.? Pacifiers are allowed. Take only the following medications with a SIP of water on the morning of surgery: ____n/a___ DO NOT STOP ANY OF YOUR OTHER PRESCRIPTION MEDICATIONS PRIOR TO SURGERY EXCEPT THE FOLLOWING Hold all vitamins and supplements for 3 days per anesthesiologist. Medications to discontinue per physician vitamin and supplements 3 days prior Date to take last dose Please no make-up, nail macedonian, hairspray, perfume, deodorant, or body powder the day of surgery.? No jewelry (including any body piercings) or valuables the day of surgery, leave them at home.? Please take a shower or bath the night before, or the morning of, surgery with an antibacterial soap.? Wear comfortable, loose fitting clothing.? Children are encouraged to wear pajamas. - Jewelry must be removed prior to entering the operating room.? Rings and piercings that are not removed may be cut off. - The hospital will not accept responsibility for valuables.? - Please leave all valuables, including medications, at home the day of surgery. If you are going home after surgery, a licensed cdl team truck driver must drive you home.? - NO public transportation without another adult if you receive anesthesia. - We recommend that an adult stay with you for 24 hours following discharge. - We also recommend that you do not drive, make important decision, drink alcoholic beverages, or take any drugs that were not prescribed by your health care provider for at least 24 hours after your discharge time. For Pediatric surgeries, we recommend two adults accompany the child home. Follow any additional instructions given to you from your surgeon. Telephone instructions given to __patient__and asked if any additional questions and then verbalized understanding. Patient advised to call surgeon office or pre surgery nurse liaison [phone] if any additional questions.
--- OUTSIDE RECORDS SUMMARY | 2025-06-12 01:16 | XMS_ITS | Encounter Summary ---
Author Organization [facility] Address [address] [place] [address] Care Team Providers Care Radio Operator Name Role Phone Sherlyn Brown Primary Care Provider [phone] Encounter Details Date Type Department Care Team (Late st Contact Info) Description 03/20/2023 linkedFA Message Enc [facility] Family Medicine - [place] [address] [facility], [address] [place] [phone] [employer] Solutions[facility]bie, [facility] Provider methylphenidate Social History Tobacco Use Types [...] Total Score: 0 10/03/19 23 11:40 AM ACADEMIC COMPUTING DIRECTOR documented as of this encounter Care Teams Radio Operator Relationship Specialty Start Date End Date Sherlyn Brown DO [address] [place] [id number] PCP - General FAMILY PRACTICE 09/12/22 documented as of this encounter
--- OUTSIDE RECORDS SUMMARY | 2025-06-12 01:16 | XMS_ITS | Encounter Summary ---
Author Organization [facility] Facility Care Team Providers Care Lighthouse Keeper Name Role Phone Marcus Porter MD Primary Care Provider [phone] Jarrett Alcantar DO Unavailable [phone] Halina Ren MD Unavailable Encounter Details Date Type Department Care Team (Latest Contact Info) Description 10/18/2016 Orders Only [facility] CLINCONV Provider, MD Sam [address] [place] [address] Social History Tobacco Use Types Packs/Day [...] Comments SCAN - LABS 10/27/2016 12:00 AM SENIOR NET ARCHITECT documented in this encounter Results * SCAN - LABS (10/27/2016 12:00 AM SENIOR NET ARCHITECT) Narrative 10/27/2016 12:00 AM SENIOR NET ARCHITECT Ordered by an unspecified provider. Historical Provider Final Res ult documented in this encounter Visit Diagnoses Not on filedocumented in this encounter Additional Health Concerns Infection Onset Date Last Indicated Resolved Time COVID: Suspected 08/26/2021 08/26/2021 08/26/2021 9:07 PM SENIOR NET ARCHITECT COVID19 08/26/2021 08/26/2021 09/09/2021 3:06 AM SENIOR NET ARCHITECT documented as of this encounter Care Teams Lighthouse Keeper Relationship Specialty Start Date End Date Marcus Porter MD PCP - General Family Medicine 01/19/19 Jarrett Alcantar DO [address] [place] [address] Medical Oncologist/Investigation Specialist Hematology and Oncology 03/16/19 Halina Ren MD [address] [facility] [address] [place] [address] Referring Physician Gynecology 03/28/19 documented as of this encounter
--- OUTSIDE RECORDS SUMMARY | 2025-06-12 01:16 | XMS_ITS | Encounter Summary ---
Author Organization [facility] Address [facility] [place] [address] Care Team Providers Care Ticketing Clerk Name Role Phone Sherlyn Brown DO Primary Care Provider [phone] Encounter Details Date Type Department Care Team (Late st Contact Info) Description 06/23/[address] [facility] Family Medicine - [place] [address] [facility], [address] [place] [phone] Sherlyn Brown DO [address] [place], [place] [phone] pap smear Social History Tobacco Use Types [...] documented as of this encounter Care Teams Ticketing Clerk Relationship Specialty Start Date End Date Sherlyn Brown DO [address] [place] [address] PCP - General FAMILY PRACTICE 09/12/22 documented as of this encounter
--- OUTSIDE RECORDS SUMMARY | 2025-06-12 01:16 | XMS_ITS | Encounter Summary ---
Author Organization [facility] Address [facility] [place] [address] Care Team Providers Care Lead Software Test Engineer Name Role Phone Sherlyn Brown DO Primary Care Provider [phone] Encounter Details Date Type Department Care Team (Late st Contact Info) Description 05/05/[email or web address] [facility] Family Medicine - [place] [address] [facility], [address] [place] [phone] Sherlyn Brown DO [address] [place], [place] [phone] Insurance issue with labs requested Social History [...] documented as of this encounter Care Teams Lead Software Test Engineer Relationship Specialty Start Date End Date Sherlyn Brown DO [address] [place] [address] PCP - General FAMILY PRACTICE 09/12/22 documented as of this encounter
--- OUTSIDE RECORDS SUMMARY | 2025-06-12 01:16 | XMS_ITS | Encounter Summary ---
Author Organization [facility] Address [facility] [place] [address] Care Team Providers Care Deicer Element Winder Machine Name Role Phone Sherlyn Brown DO Primary Care Provider [phone] Encounter Details Date Type Department Care Team (Late st Contact Info) Description 12/17/2023 Dynamo Micropower Message Enc [facility] Family Medicine - [place] [address] [facility], [address] [place] [phone] Sherlyn Brown DO [address] [place], [place] [phone] Need labs sent to [facility] Social History Tobacco Use Types Packs/Day Years [...] documented as of this encounter Care Teams Deicer Element Winder Machine Relationship Specialty Start Date End Date Sherlyn Brown DO [address] [place] [address] PCP - General FAMILY PRACTICE 09/12/22 documented as of this encounter
--- OUTSIDE RECORDS SUMMARY | 2025-06-12 01:16 | XMS_ITS | Encounter Summary ---
Author Organization [facility] Address [facility] [place] [address] Care Team Providers Care Nitrocellulose Maker Name Role Phone Sherlyn Brown DO Primary Care Provider [phone] Encounter Details Date Type Department Care Team (Late st Contact Info) Description 12/10/[address] [facility] Family Medicine - [place] [address] [facility], [address] [place] [phone] Sherlyn Brown DO [address] [place], [place] [phone] Refill request Social History Tobacco Use Types [...] Total Score: 0 10/03/19 23 11:40 AM INVOICE CODER documented as of this encounter Care Teams Nitrocellulose Maker Relationship Specialty Start Date End Date Sherlyn Brown DO [facility] [place], [place] [address] PCP - General FAMILY PRACTICE 09/12/22 documented as of this encounter
--- OUTSIDE RECORDS SUMMARY | 2025-06-12 01:16 | XMS_ITS | Encounter Summary ---
Author Organization [facility] Address [facility] [place] [address] Care Team Providers Care Quality Control Scientist Name Role Phone Sherlyn Brown DO Primary Care Provider [phone] Encounter Details Date Type Department Care Team (Late st Contact Info) Description 02/18/2023 Nordic Neurostim Message Enc [facility] Medical [facility] Family Medicine - [place] [address] [facility], [address] [place] [phone] Sherlyn Brown DO [address] [place], [place] [phone] Problems with heart monitor device Social History [...] Total Score: 0 10/03/19 23 11:40 AM YOGHURT MAKER documented as of this encounter Care Teams Quality Control Scientist Relationship Specialty Start Date End Date Sherlyn Brown DO [address] [place], [place] [phone] PCP - General FAMILY PRACTICE 09/12/22 documented as of this encounter
--- OUTSIDE RECORDS SUMMARY | 2025-06-12 01:16 | XMS_ITS | Clinical Summary ---
Author Organization [facility] Address [address] [place] [address] Care Team Providers Care Warehouse Coordinator Name Role Phone Marcus Porter MD Primary Care Provider [phone] Jarrett Alcantar DO Unavailable [phone] Halina Ren MD Unavailable [phone] Allergies No known active allergies Medications No known medications Active Problems Problem Noted Date Diagnosed Date Protein C deficiency 04/03/2019 MTHFR gene mutation 04/03/2019 Anxiety 06/21/2018 Vitamin D deficiency, unspecified 02/17/2017 Hypercoagulable state 07/09/2016 Encounters Date Type Department Care Team Description 05/04/2025 Telephone [facility] Oncology [address] [place] [phone] Michelle Faustin 05/03/2025 4:30 PM CDT Telemedicine [facility] Medicine [facility] Oncology [address] [place] [address] [address] [place] [address] Jarrett Alcantar DO Protein C deficiency (Primary Dx) 04/27/2025 8:00 AM CDT Lab [facility] at [address] [address] Protein C deficiency (Primary Dx) [...] - 150 % Comment:Testing performed by : [facility], [address] [facility], [place]., [address] Blood 04/27/2025 8:12 AM CDT 04/27/2025 5:36 PM CDT us Jarrett Alcantar DO LAB BLOOD ORDERABLES Final R esult [place] [address] [facility] [place] [address] from Last 3 Months Insurance [facility] Care Teams Warehouse Coordinator Relationship Specialty Start Date End Date Marcus Porter MD PCP - General Family Medicine 01/19/19 Jarrett Alcantar DO [address] [place] [address] Medical Oncologist/Wrist Closer Hematology and Oncology 03/16/19 Halina Ren MD [address] [facility] [address] [place], [place] [phone] Referring Physician Gynecology 03/28/19
--- OUTSIDE RECORDS SUMMARY | 2025-06-12 01:16 | XMS_ITS | Clinical Summary ---
Author Organization [facility] Address [address] [place] [address] Phone Care Team Providers Care Winch Runner Name Role Phone Unavailable Primary Care Provider Unavailabl e Social History Tobacco Use Types Packs/Day Years Used Date Smoking Tobacco: Never Assessed Comments Unknown Sex and Gender Information Value Date Recorded Sex Assigned at Not on file Legal Sex Female 11:22 AM WOOL HAT SANDING MACHINE OPERATOR Gender Identity Not on file [...] topic Insurance BCBS BLUE ACCESS/TRUE BLUE PPO [facility]
--- OUTSIDE RECORDS SUMMARY | 2025-06-12 01:16 | XMS_ITS | Clinical Summary ---
Author Organization [facility] Address [facility] [place] [address] Care Team Providers Care Grease Monkey Name Role Phone Sherlyn Brown DO Primary Care Provider [phone] Allergies Active Allergy Reactions Criticality Noted Date [...] Description 04/12/2025 2:00 PM CDT Office Visit [facility] Medical Group Family Medicine - [place] [address] [facility] [address], [address] [place] [address] Stephanie, Sherlyn, DO Sore Throat (Pt c/o nausea, cough, CHENG and sore throat. tested positive for COVID. - [facility]) 04/12/2025 Travel from Last 3 Months Immunizations Immunization Administration Dates Next Due Fluzone 6 Months+ Quad (0.5 mL Prefilled Syringe) 06/25/2023 Influenza (Generic) 06/28/2020,07/03/2015,2014 Influenza Adult (Generic) 07/25/2019 PFIZER COVID-19 (OLSON CAP), MRNA, LNP-S, PF, 30 MCG/0.3 ML ARACELI-SUCROSE, IM 04/04/2022 PFIZER COVID-19 (ORIGINAL FO RMULATION, [...] CDT Respiratory Rate 14 10/11/2024 7:43 AM AIR CONDITIONING SPECIALIST Oxygen Saturation 97% 04/12/2025 2:02 PM CDT Inhaled Oxygen Concentration - - Weight 64.4 kg (142 lb) 04/12/2025 2:02 PM CDT Height 154.9 cm (5' 1) 10/11/2024 7:43 AM AIR CONDITIONING SPECIALIST Body Mass Index 26.83 10/11/2024 7:43 AM AIR CONDITIONING SPECIALIST Plan of Treatment Health Maintenance Due Date [...] (3 Years) 10/22/2027 10/22/2024, 10/22/2024 PHQ-2 (Physician [place]) Completed 10/11/2024 RSV Immunizations Under 20 Months Aged Out No longer eligible b ased on patient's age to complete this topic Procedures Procedure Name Priority Date/Time Associated Diagnosis Comments COLOGUARD (EXACT SCIENCE) Routine 10/22/2024 10:40 AM AIR CONDITIONING SPECIALIST Screening for colon cancer OUTSIDE CYTOPATH CERV/VAG INTERPRET (PAP) (SCAN ORDER) 10/12/2023 MAMMOGRAM GENERIC (SCAN ORDER) 01/30/2023 from Last 3 Months or Most Recently Relevant to Health Maintenance Results * COLOGUARD (EXACT SCIENCE) (10/22/2024 10:40 AM AIR CONDITIONING SPECIALIST) COLOGUARD RESULT Negative Negative [facility] (CLIA #:[id number]) Comment: NEGATIVE TEST RESULT. A negative Cologuard [...] Ca et al, N Engl J Med 2014;370(14):1139-8263) The normal value (reference range) for this assay is negative. COLOGUARD RE-SCREENING RECOMMENDATION: Periodic colorectal cancer screening is an important part of preventive healthcare for asymptomatic individuals at average risk for colorectal cancer. Following a negative Cologuard result, the [place] Cancer Society and U.S. Multi-Society Task Force screening guidelines recommend a Cologuard re-screening interval of 3 years. References: [place] [employer] Society Guideline for Colorectal Cancer Screening: https://www.cancer.org/cancer/qnrzt-jojcgc-ljqpaw/jwpkneupz-guzmgrnhq-unraqpe/ac s-rec ommendations.html.; Dusty DK, [place] CR, Lina GANDHI, Colorectal Cancer Screening: Recommendations for Physicians and Patients from the U.S. Multi-Society Task Force on Colorectal Cancer Screening , Am J Gastroenterology 2017; 112:2119-2303. TEST DESCRIPTION: Composite algorithmic analysis of stool [...] Barroso. et al, N Engl J Med 2014;370(14):0638-1189.) Cologuard may produce a false negative or false positive result (no colorectal cancer or precancerous polyp present at colonoscopy follow up). A negative Cologuard test result does not guarantee the absence of CRC or advanced adenoma (pre-cancer). The current Cologuard screening interval is every 3 years. ([place] Cancer Society and U.S. Multi-Society Task Force). Cologuard performance data in a 10,000 patient pivotal study using colonoscopy as the reference method can be accessed at the following location: www.Causes.com/results. Additional description of the Cologuard test process, warnings and precautions can be found at www.cologuard.com. STOOL STOOL SPECIMEN / Unknown 10/22/2024 10:40 AM AIR CONDITIONING SPECIALIST 10/23/2024 6:41 PM AIR CONDITIONING SPECIALIST us Sherlyn Stephanie DO BODY FLUIDS AND STOOLS ORDERABL ES Final Result [employer] [address] [place] [address], [place] (CLIA #:[id number]) [address] [place] [address] * PAP SMEAR (SCAN ORDER) (10/12/2023) 10/12/2023 [facility] Scanned SCANNING Final Resu lt * MAMMOGRAM GENERIC (01/30/2023) Anatomical Region Laterality Modality Other 01/30/2023 [facility] Scanned SCANNING Final Resu lt from Last 3 Months or Most Recently Relevant to Health Maintenance [place] [address] Care Teams Grease Monkey Relationship Specialty Start Date End Date Sherlyn Brown DO [address] [place] [address] PCP - General FAMILY PRACTICE 09/12/22
--- OUTSIDE RECORDS SUMMARY | 2025-06-12 01:16 | XMS_ITS | Clinical Summary ---
Author Organization [facility] Address [address] [place] [address] Care Team Providers Care Orthopedic Shoe Fitter Name Role Phone Sherlyn Brown DO Primary Care Provider [phone] Source Comments [facility],non-[facility] Affiliates and Associated Physician Practices is amultiple site organization consisting of ambulatory clinics and hospital sitesin [place], [place], [place] and [place]. This disclosure is being madepursuant to the Care Everywhere program and may not contain all information available regarding this patient. Last updated 18.[facility] Social History Tobacco Use Types Packs/Day Years [...] this topic Insurance ANTHEM ANTHEM Care Teams Orthopedic Shoe Fitter Relationship Specialty Start Date End Date Sherlyn Brown DO [address] [place] [address] PCP - General Family Medicine 07/07/23
--- OUTSIDE RECORDS SUMMARY | 2025-06-12 01:16 | XMS_ITS | Encounter Summary ---
Author Organization [facility] Address [facility] [place] [address] Care Team Providers Care Bread Supervisor Name Role Phone Sherlyn Brown DO Primary Care Provider [phone] Encounter Details Date Type Department Care Team (Late st Contact Info) Description 09/29/2023 [employer] Message Enc [facility] Medical Group Family Medicine - [place] [address] [facility], [address] [place] [phone] Sherlyn Brown DO [address] [place], [place] [phone] [place] Social History Tobacco Use Types Packs/Day [...] Total Score: 0 10/03/19 23 11:40 AM BELLOWS TESTER documented as of this encounter Care Teams Bread Supervisor Relationship Specialty Start Date End Date Sherlyn Brown DO [address] [place] [address] PCP - General FAMILY PRACTICE 09/12/22 documented as of this encounter
[2025-06-12 06:45] VITALS: BP 112/73; PULSE 70; RESP 16; TEMP 36.9; O2SAT 100
[2025-06-12] MEDS: LACTATED RINGERS 1,000 ML 30 ML IV CONT (06:45)
--- NOTE | 2025-06-12 06:47 | WPDANESEPPF ---
Anes - Initial Pre Proc Eval Procedure: Operation Date: 06/12/25 07:30 Proposed Procedures p Hysteroscopy Dilation and Curettage - Halina Ren MD Date/Time: 06/12/25 06:47 Surgeon: Halina Ren MD Pre Op Diagnosis: Abnormal Uterine Bleeding Patient Data Age: 44 Gender: F Height: 1.55 m Weight: 63.96 kg Allergies Allergy/AdvReac Type Severity Reaction Status Date / Time No Known Allergies Allergy Mild Verified 06/01/25 15:42 Home Medications ?Medication ?Instructions ?Recorded ?Confirmed ?Type cholecalciferol (vitamin D3) 50 50 mcg PO DAILY 04/12/25 04/12/25 History mcg (2,000 unit) capsule (Vitamin D3) dextroamphetamine-amphetamine ER 25 mg PO DAILY 04/12/25 04/12/25 History 25 mg 24hr capsule,extend release magnesium glycinate 100 mg (as 250 mg PO HS 04/12/25 04/12/25 History glycinate) tablet misoprostol 200 mcg tablet 200 mcg PO HS 04/12/25 04/12/25 History multivitamin (Daily Multi-Vitamin 1 tablet PO DAILY 04/12/25 04/12/25 History tablet) progesterone micronized 100 mg 100 mg PO HS 04/12/25 04/12/25 History capsule Patient hx anesthesia problems: none Family hx anesthesia problems: none Results Review: All pre-operative results and documents have been reviewed as part of the pre-operative evaluation. [facility], [facility] Past Medical History Medical History (Updated 06/12/25 @ 06:48 by Jarod Ley MD) Anxiety Protein C deficiency Social History Social History (Updated 06/12/25 @ 06:48 by Jarod Ley MD) Smoking packs per day: 1 Smoking cigarettes per day: 20.0 Years smoked: 14 Smoking pack-years: 14.00 Smoking status: Former smoker Smoking end date: 04/12/11 Alcohol intake: current Drinks per week: 7 Alcohol use details: 1 drink per day Living arrangements: with family Spiritual care concerns: No Anes - Eval Final PreProcedure Day of Procedure 06/12/25 06:47 Patient weight: overweight Heart: regular rate and rhythm Lungs: clear to auscultation Airway: Mallampati scale class II Neurological: alert and oriented Last oral intake: >/= 8 hours ASA classification: II Emergent: no Anesthetic plan: proceed Results Review: All pre-operative results and documents have been reviewed as part of the pre-operative evaluation. Informed Consent: The patient's anesthetic plan and its attendant risks and benefits were discussed with the patient/family/POA. Questions were solicited and answers provided to the satisfaction of the patient/family/POA.
[2025-06-12] MEDS: ACETAMINOPHEN 500 MG TABLET 1000 MG PO (07:00)
--- NOTE | 2025-06-12 07:01 | WPDHPUPDATE1 ---
History and Physical Update Update Date/Time: 06/12/25 07:01 History and Physical has been reviewed, including an updated exam of the patient. There are NO changes in the patient's condition. Risks, benefits, and alternatives have been discussed and questions answered. Patient agrees to proceed with procedure.
--- NOTE | 2025-06-12 07:01 | PM.HPGS ---
History of Present Illness History of Present Illness Consent: Risks, benefits, and alternatives have been discussed and questions answered. Patient agrees to proceed with procedure. Chief complaint: Abnormal Uterine Bleeding Narrative: Heike Lazo is a 44 year old female with prolonged bleeding. It was recommended to undergo D&C hysteroscopy. Risks of infection, bleeding, and perforation are reviewed. Possible pathology was discussed. Patient voices understanding and agrees to proceed. Review of Systems Review of Systems: not repeated day of surgery; patient states no changes in status PMFSH Past Medical History Medical History (Updated 06/12/25 @ 07:05 by Halina Ren MD) History of spontaneous x3 with D&C x1 (normal spontaneous vaginal delivery) x2 History of depression Elevated cholesterol Anxiety Protein C deficiency Surgical History Surgical History (Updated 06/12/25 @ 07:05 by Halina Ren MD) History of History of endometrial ablation Social History Social History (Updated 06/12/25 @ 06:48 by Jarod Ley MD) Smoking packs per day: 1 Smoking cigarettes per day: 20.0 Years smoked: 14 Smoking pack-years: 14.00 Smoking status: Former smoker Smoking end date: 04/12/11 Alcohol intake: current Drinks per week: 7 Alcohol use details: 1 drink per day Living arrangements: with family Spiritual care concerns: No Meds Home Medications and Allergies Home Medications ?Medication ?Instructions ?Recorded ?Confirmed ?Type cholecalciferol (vitamin D3) 50 50 mcg PO DAILY 04/12/25 04/12/25 History mcg (2,000 unit) capsule (Vitamin D3) dextroamphetamine-amphetamine ER 25 mg PO DAILY 04/12/25 04/12/25 History 25 mg 24hr capsule,extend release magnesium glycinate 100 mg (as 250 mg PO HS 04/12/25 04/12/25 History glycinate) tablet misoprostol 200 mcg tablet 200 mcg PO HS 04/12/25 04/12/25 History multivitamin (Daily Multi-Vitamin 1 tablet PO DAILY 04/12/25 04/12/25 History tablet) progesterone micronized 100 mg 100 mg PO HS 04/12/25 04/12/25 History capsule Allergies Allergy/AdvReac Type Severity Reaction Status Date / Time No Known Allergies Allergy Mild Verified 06/01/25 15:42 Exam Const: General: healthy appearing and alert Orientation/consciousness: patient oriented x3 Resp: Effort & Inspection: normal respiratory effort : External Female Exam: normal external appearance Speculum Exam - Vagina: normal appearance of the vagina and normal vaginal discharge Speculum Exam - Cervix: normal appearance of the cervix Bimanual exam- vagina & uterus: uterine size normal and consistency normal Bimanual Exam- Adnexa, other: normal adnexae and No adnexal tenderness Neuro: General: patient oriented x3 Assessment and Plan Assessment and plan (1) Menorrhagia: Code(s): N92.0 - Excessive and frequent menstruation with regular cycle Status: Acute Assessment and Plan: Plan to proceed with D&C hysteroscopy
[2025-06-12 07:23] LABS: BEDSIDEPREGUCG Negative (Negative)
--- NOTE | 2025-06-12 07:45 | S_PTH ---
PATIENT: Heike Lazo LOC: [facility]#:[id number] AGE/SX: 44/F ROOM: RE06/12/[address]: Halina Ren MD : 1980 BED: DIS: 06/12/2025 SPEC #: [id number] RECD: 06/12/25 09:48 STATUS: AC RESandra #: [id number] CEASAR: 06/12/25 07:[address]: Halina Ren DEPT: [facility] Surgical RECD BY: Elke Singer ENTERED: 06/12/25 09:48 SP TYPE: Surgical OTHR DR: Sherlyn Brown, DO Tissues: A - Polyp B - Endometrial Curettings Procedures: Hematoxylin and Eosin Stain Gross and Microscopic Level 4
[2025-06-12] MEDS: KETOROLAC 30 MG/ML VIAL (*BKC) IV PUSH (07:46)
[2025-06-12 07:58] VITALS: BP 105/67; PULSE 71; RESP 12; O2SAT 100
--- NOTE | 2025-06-12 07:58 | P.OP_ITS ---
Procedure Note - Detailed Date of Procedure 06/12/25 Pre-op Diagnosis Abnormal Uterine Bleeding Post-op Diagnosis Same Procedure Performed D&C hysteroscopy with resection of polyps Surgeon Halina Ren MD Anesthesia MAC Findings Cervical polyp approximately0.5cm. Polyp at the endocervical cervical junction. Stenosis of the cervix. Endometrium appears grossly normal. Description of Procedure The patient was taken to the operating room and placed under anesthesia in the dorsal lithotomy position. She was prepped and draped in usual sterile fashion. [place] speculum was placed and a cervical polyp was noted. This is grasped with a ring forcep and removed. The uterus was attempted to be sounded but internal cervical stenosis is encountered. Os Finders were used and the internal os is able to be passed. The uterus sounds to 8cm. The diagnostic hysteroscope was placed and there was a polyp noted at the cervical endocervical junction. The endometrium appears grossly normal. The small Aveta resection device is placed and under direct visualization the small polyp at the endocervical cervical junction was removed. Scar tissue at the internal os was also excised. The hysteroscope was then removed and the sharp curette used to curette the endometrium until a good uterine cry was noted in all areas. All instruments were then removed. Sponge, needle, and instrument counts are correct per the OR staff. The patient was taken to recovery in stable condition. Estimated Blood Loss 5 Drains No Packing No Pathology Yes (Cervical polyp and endometrial curettings and shaving) Complications No immediate complications Condition Stable Disposition PACU
[2025-06-12 08:25] VITALS: BP 99/61; PULSE 78; RESP 20
[2025-06-12 08:50] VITALS: BP 104/66; PULSE 66; RESP 20
== END 2025-06-12 08:57 | disposition home or self-care (01) ==
PROVIDERS: Anesthesiology; PCP Family Medicine; Visit Provider Obstetrics & Gynecology Gynecology
PROC: 0U5B8ZZ Destruction of Endometrium, Via Natural or Artificial Opening Endoscopic (ICD-10-PCS; CPT 58563; principal; 2025-06-12 07:30)
DX: N84.1 Polyp of cervix uteri (principal); N88.2 Stricture and stenosis of cervix uteri; E78.00 Pure hypercholesterolemia, unspecified; D68.59 Other primary thrombophilia; F32.A Depression, unspecified; F41.9 Anxiety disorder, unspecified; Z98.890 Other specified postprocedural states; Z98.891 History of uterine scar from previous surgery; Z87.891 Personal history of nicotine dependence
CPT/HCPCS: 58558; 88305; A9270; J1885; J2003; J2250; J2704; J3010; J7120